=== PATIENT | female | born 1945 | race Caucasian/White ===

== ENCOUNTER 2022-10-26 11:49 | Outpatient (OUT) | payer MEDICARE, OTHER, SELFPAY ==
[2022-10-26 12:38] LABS: Basophils Percent Auto 0.7 % (0.2-2.0); Eosinophils Absolute Auto 0.1 10^3/uL (0.0-0.7); Eosinophils Percent Auto 1.1 % (0.9-7.0); Hematocrit 43.1 % (36.0-48.0); Hemoglobin 14.3 g/dL (12.0-16.0); Immature Granulocytes Abs Auto 0.03 10^3/uL (0.00-0.03); Immature Granulocytes Pct Auto 0.5 % (0.0-0.5); Lymphocytes Absolute Auto 1.5 10^3/uL (1.2-3.8); Mean Corpuscular HGB Conc 33.2 g/dL (29.9-35.2); Mean Corpuscular Volume 90.5 fL (81.0-99.0); Monocytes Absolute Auto 0.4 10^3/uL (0.3-0.8); Monocytes Percent Auto 6.9 % (1.7-12.0); Neutrophils Absolute Auto 4.1 10^3/uL (1.4-6.5); Neutrophils Percent Auto 66.8 % (43.0-75.0); Platelet Count 255 10^3/uL (150-450); Red Blood Count 4.76 10^6/uL (4.20-5.40); Red Cell Distribution Width 12.8 % (11.0-15.0); White Blood Count 6.1 10^3/uL (4.0-11.0)
[2022-10-26 13:18] LABS: Anion Gap 12.4; BUN Creatinine Ratio 18.6; Calcium 9.8 mg/dL (8.5-10.1); Carbon Dioxide 27.8 mmol/L (21.0-32.0); Chloride 103 mmol/L (98-107); Estimated GFR (African America >60 (>=60); Estimated GFR (Non-African Ame >60 (>=60); Glucose 99 mg/dL (74-106); Potassium 4.2 mmol/L (3.5-5.1); Sodium 139 mmol/L (136-145)
== END 2022-10-26 11:50 | disposition home or self-care (01) ==
LOC: LAB 11:59
PROVIDERS: PCP Family Medicine; Visit Provider Family Medicine
DX: K64.9 Unspecified hemorrhoids (principal)
CPT/HCPCS: 36415; 80048; 85025

== ENCOUNTER 2023-01-04 09:34 | Outpatient (OUT) | payer MEDICARE, OTHER, SELFPAY ==
--- NOTE | 2023-01-04 10:08 | XR_ITS ---
The [address] [address] Patient Name: YORDAN CHICAS MRN: [id number] date: 1945 Sex: F Assigned Patient Location: [facility] Current Patient Location: [facility] Accession/Order Number: [id number] Exam Date: 01/04/2023 09:55 Report Date: 01/04/2023 17:59 At the request of: YUNG EDWARD Procedure: XR hip LT 2V w/ pelvis Exam: Radiographs: XR hip LT 2V w/ pelvis Reason for exam: Left Hip Pain M25.552 Comparison: None XR/XR hip LT 2V w/ pelvis IMPRESSION: Mild degenerative changes of both hips. Lumbar spine degenerative changes. Atherosclerotic calcifications. Remainder of the left hip and pelvic radiographs is unremarkable. Electronically authenticated by: MELISSA HARRELL Date: 01/04/2023 17:59
--- NOTE | 2023-01-04 10:08 | XR_ITS ---
[address] [address] Patient Name: YORDAN CHICAS MRN: [id number] date: 1945 Sex: F Assigned Patient Location: [facility] Current Patient Location: [facility] Accession/Order Number: [id number] Exam Date: 01/04/2023 09:55 Report Date: 01/04/2023 14:35 At the request of: YUNG EDWARD Procedure: XR knee LT 3V EXAM: XR knee LT 3V HISTORY: Knee Pain M25.569 COMPARISON: None. TECHNIQUE: 3 views FINDINGS: No acute fracture or dislocation. Mild degenerative changes. Unremarkable soft tissues. XR/XR knee LT 3V IMPRESSION: Mild degenerative changes. Electronically authenticated by: BETH IQBAL Date: 01/04/2023 14:35
== END 2023-01-04 09:35 | disposition home or self-care (01) ==
LOC: RAD 09:36
PROVIDERS: PCP Family Medicine; Visit Provider Family Medicine
DX: M25.569 Pain in unspecified knee (principal); M25.552 Pain in left hip
CPT/HCPCS: 73502; 73562

== ENCOUNTER 2023-08-11 11:23 | Outpatient (OUT) | payer MEDICARE, OTHER, SELFPAY ==
--- OUTSIDE RECORDS SUMMARY | 2023-08-11 11:31 | XMS_ITS | CCD ---
Author Organization [facility] Care Team Providers Care Rubber Press Tender Name Role Phone Gladys Marroquin Unavailable Unavailable Jazz He Unavailable Unavaila ble Corry Martinez Unavailable Unavailable HOY, DR BARRAGAN Attending Unavailable HOY, DR BARRAGAN Consulting Unavailable HOY, DR BARRAGAN Admitting Unavailable HOY, DR BARRAGAN Attending Unavailable HOY, DR BARRAGAN Consulting Unavailable HOY, DR BARRAGAN Admitting Unavailable NILL, Wilberto Govea Attending Unavailable Yung Edward Referring Unavailable DUKE EDWARDLAS Primary Care Unavailable PEGGY FIELD Attending Unavaila ble Problems Problem Classification Problem Date Documented Da te Episodic/Chronic Chronic obstructive pulmonary disease and bronchiectasis (1 source) Chronic obstructive pulmonary disease, unspecified; Translations: [COPD UNSPECIFIED] Onset: 02-07-2022 Chronic Deficiency and other anemia (1 source) Anemia, unspecified; Translations: [ANEMIA UNSPECIFIED] Onset: 02-05-2022 Episodic Diabetes mellitus without complication (1 source) Other abnormal glucose; Translations: [OTHER ABNORMAL GLUCOSE] Onset: 02-05-2022 Episodic Disorders of lipid metabolism (2 sources) Pure hypercholesterolemi a, unspecified; Translations: [Hyperlipidemia, unspecified] Onset: 02-05-2022 Chronic Essential hypertension (5 sources) Essential (primary) hypertension; Translations: [ESSENTIAL PRIMARY HYPERTENSION] Onset: 02-01-2022 Chronic Hemorrhoids (2 sources) Unspecified hemorrhoids; Translations: [Unspecified hemorrhoids] Onset: 11-07-2022 Episodic Other lower respiratory disease (1 source) Dyspnea, unspecified; Translations: [DYSPNEA UNSPECIFIED] Onset: 02-07-2022 Episodic Other screening for suspected conditions (not mental disorders or infectious disease) (5 sources) Encounter for screening for malignant neoplasm of rectum; Translations: [ENC SCREEN MALIG NEOPLASM RECTUM] Onset: 02-03-2022 Episodic Results Test Name Value Interpretation Reference Range Facil ity Consultation Noteon 07-13-19 23 Consultation Note [id number] #1.00CD:127 Normal [facility] Physician Referralon 023 Physician Referral [id number] #1.00CD:127 Normal [facility] OCC BLD IMMUNO SCREENon OCCULT BLOOD Negative Normal NEGATIVE [facility] Comment on above: Performed By: #### O BSCRN #### [facility] [address] [place] [address] Dr. Niecy Acuña CBC AUTO DIFFon 02-01-2022 BASO # 0.0 103/ul Normal 0.0-0.1 [facility] Comment on above: Performed By: #### C BC #### [facility] [address] [place] [address] Dr. Niecy Acuña Basophils/100 WBC (Bld) 0.7 % Normal 0.2-2.0 [facility] Comment on above: Performed By: #### C BC #### [facility] [address] [place] [address] Dr. Niecy Acuña EO # 0.1 103/ul Normal 0.0-0.7 [facility] Comment on above: Performed By: #### C BC #### [facility] [address] [place] [address] Dr. Niecy Acuña Eosinophils/100 WBC (Bld) 1.5 % Normal 0.9-7.0 [facility] Comment on above: Performed By: #### C BC #### [facility] [address] [place] [address] Dr. Niecy Acuña Erythrocyte distribution width (RBC) [Ratio] 12.9 % Normal 11.0-15.0 [facility] Comment on above: Performed By: #### C BC #### [facility] [address] [place] [address] Dr. Niecy Acuña Hematocrit (Bld) [Volume fraction] 42.6 % Normal 36.0-48.0 [facility] Comment on above: Performed By: #### C BC #### [facility] [address] [place] [address] Dr. Niecy Acuña Hemoglobin (Bld) [Mass/Vol] 14.2 g/dL Normal 12.0-16.0 [facility] Comment on above: Performed By: #### C BC #### [facility] [address] [place] [address] Dr. Niecy Acuña IG # 0.03 10e3/ul Normal 0.00-0.03 [facility] Comment on above: Performed By: #### C BC #### [facility] [address] [place] [address] Dr. Niecy Acuña IG % 0.6 % Critically high 0.0-0.5 [facility] Comment on above: Performed By: #### C BC #### [facility] [address] [place] [address] Dr. Niecy Acuña LYMPH # 1.1 103/ul Critically low 1.2-3.8 [facility] Comment on above: Performed By: #### C BC #### [facility] [address] [place] [address] Dr. Niecy Acuña Lymphocytes/100 WBC (Bld) 20.1 % Critically low 20.5-60.0 [facility] Comment on above: Performed By: #### C BC #### [facility] [address] [place] [address] Dr. Niecy Acuña MANUAL DIFF REQ NO Normal [facility] Comment on above: Performed By: #### C BC #### [facility] [address] [place] [address] Dr. Niecy Acuña MCH (RBC) [Entitic mass] 29.6 pg Normal 26.7-34.0 [facility] Comment on above: Performed By: #### C BC #### [facility] [address] [place] [address] Dr. Niecy Acuña MCHC (RBC) [Mass/Vol] 33.3 g/dL Normal 29.9-35.2 [facility] Comment on above: Performed By: #### C BC #### [facility] [address] [id number] Niecy Acuña MCV (RBC) [Entitic vol] 88.8 fL Normal 81.0-99.0 [facility] Comment on above: Performed By: #### C BC #### [facility] [address] [address] [address] Niecy Acuña MONO # 0.3 103/ul Normal 0.3-0.8 [facility] Comment on above: Performed By: #### C BC #### [facility] [address] [place] [address] Dr. Niecy Acuña Monocytes/100 WBC (Bld) 6.1 % Normal 1.7-12.0 [facility] Comment on above: Performed By: #### C BC #### [facility] [address] [place] [address] Dr. Niecy Acuña NEUT # 3.9 103/ul Normal 1.4-6.5 [facility] Comment on above: Performed By: #### C BC #### [facility] [address] [place] [address] Dr. Niecy Acuña Neutrophils/100 WBC (Bld) 71.0 % Normal 43.0-75.0 [facility] Comment on above: Performed By: #### C BC #### [facility] [address] [place] [address] Dr. Niecy Acuña Platelet mean volume (Bld) [Entitic vol] 8.9 fL Critically low 9.5-13.5 [facility] Comment on above: Performed By: #### C BC #### [facility] [address] [place] [address] Dr. Niecy Acuña PLT 249 103/ul Normal 150-450 [facility] Comment on above: Performed By: #### C BC #### [facility] [address] [place] [address] Dr. Niecy Acuña RBC 4.80 106/ul Normal 4.20-5.40 [facility] Comment on above: Performed By: #### C BC #### [facility] [address] [place], [place] [id number] Dr. Niecy Acuña WBC 5.4 103/ul Normal 4.0-11.0 [facility] Comment on above: Performed By: #### C BC #### [facility] [address] [place] [address] Dr. Niecy Acuña FREE THYROXINE INDEX T7on FTI 3.35 Normal 1.30-4.50 [facility] Comment on above: Performed By: #### L IPID, T7, TSH, CMP #### [facility] [address] [place] [address] Dr. Niecy Acuña T3U 31.0 % Normal 30.0-39.0 [facility] Comment on above: Performed By: #### L IPID, T7, TSH, CMP #### [facility] [address] [place] [address] Dr. Niecy Acuña T4 [Mass/Vol] 10.80 ug/dL Normal 4.80-13.90 [facility] Comment on above: Performed By: #### L IPID, T7, TSH, CMP #### [facility] [address] [place] [address] Dr. Niecy Acuña GLYCOHEMOGLOBIN A1Con 2021 ADA RECOMMENDATION SEE BELOW Normal [facility] Comment on above: Result Comment: ADA RECOMMENDED LIMIT 4.0 - 6.0 ADA THERAPEUTIC TARGET < 7.0 ACTION SUGGESTED > 7.0 Performed By: #### A 1C #### [facility] [address] [place] [address] Dr. Niecy Acuña Glucose [Mass/Vol] 111 mg/dL Normal [facility] Comment on above: Performed By: #### A 1C #### [facility] [address] [place] [address] Dr. Niecy Acuña HbA1c (Bld) [Mass fraction] 5.5 % Normal 4.5-6.2 [facility] Comment on above: Performed By: #### A 1C #### [facility] [address] [place] [address] Dr. Niecy Acuña IRONon 02-01-2022 Iron [Mass/Vol] 76.0 ug/dL Normal 50.0-170.0 [facility] Comment on above: Performed By: #### I ESTELITA #### [facility] [address] [address] [address] Niecy Acuña LIPID PROFILEon 02-01-2022 CHOL-HDL RATIO NORM SEE BELOW Normal [facility] Comment on above: Result Comment: 3.3 - 4.4 LOW RISK 4.4 - 7.1 AVERAGE RISK 7.1 - 11.0 MODERATE RISK >11.0 HIGH RISK Performed By: #### L IPID, T7, TSH, CMP #### [facility] [address] [address] [address] Niecy Acuña Cholesterol [Mass/Vol] 206 mg/dL Critically high <=200 [facility] Comment on above: Performed By: #### L IPID, T7, TSH, CMP #### [facility] [address] [place] [address] Dr. Niecy Acuña Cholesterol in HDL [Mass/Vol] 63 mg/dL Critically high 40-60 [facility] Comment on above: Performed By: #### L IPID, T7, TSH, CMP #### [facility] [address] [address] [address] Niecy Acuña Cholesterol in LDL [Mass/Vol] 97.4 mg/dL Normal [facility] Comment on above: Performed By: #### L IPID, T7, TSH, CMP #### [facility] [address] [address] [address] Niecy Acuña Cholesterol.total/Cho lesterol in HDL [Mass ratio] 3.3 {ratio} Normal [facility] Comment on above: Performed By: #### L IPID, T7, TSH, CMP #### [facility] [address] [address] [address] Niecy Acuña HDL NORMAL > or = 60 mg/dl - LOW CARDIOVASCULAR RISK <40 mg/dl - HIGH CARDIOVASCULAR RISK Normal [facility] Comment on above: Performed By: #### L IPID, T7, TSH, CMP #### [facility] [address] [place] [address] Dr. Niecy Acuña LDL CALC NORMAL SEE BELOW Normal [facility] Comment on above: Result Comment: <100 mg/dl OPTIMAL 100 - 129 mg/dl NEAR OR ABOVE OPTIMAL 130 - 159 mg/dl BORDERLINE HIGH 160 - 189 mg/dl HIGH >190 mg/dl VERY HIGH Performed By: #### L IPID, T7, TSH, CMP #### [facility] [address] [address] [address] Niecy Acuña Triglyceride [Mass/Vol] 228 mg/dL Critically high <=150 [facility] Comment on above: Performed By: #### L IPID, T7, TSH, CMP #### [facility] [address] [address] [address] Niecy Acuña VLDL CALC 45.6 mg/dL Normal [facility] Comment on above: Performed By: #### L IPID, T7, TSH, CMP #### [facility] [address] [place] [address] Dr. Niecy Acuña PROF 14(COMP METB)on 022 Albumin [Mass/Vol] 3.8 g/dL Normal 3.4-5.0 [facility] Comment on above: Performed By: #### L IPID, T7, TSH, CMP #### [facility] [address] [place] [address] Dr. Niecy Acuña Albumin/Globulin [Mass ratio] 1.0 {ratio} Normal [facility] Comment on above: Performed By: #### L IPID, T7, TSH, CMP #### [facility] [address] [address] [address] Niecy Acuña ALP [Catalytic activity/Vol] 87 U/L Normal 46-116 [facility] Comment on above: Performed By: #### L IPID, T7, TSH, CMP #### [facility] [address] [address] [address] Niecy Acuña ALT [Catalytic activity/Vol] 26 U/L Normal 14-59 [facility] Comment on above: Performed By: #### L IPID, T7, TSH, CMP #### [facility] [address] [place] [address] Dr. Niecy Acuña Anion gap [Moles/Vol] 8.8 mmol/L Normal [facility] Comment on above: Performed By: #### L IPID, T7, TSH, CMP #### [facility] [address] [address] [address] Niecy Acuña AST [Catalytic activity/Vol] 20 U/L Normal 15-37 [facility] Comment on above: Performed By: #### L IPID, T7, TSH, CMP #### [facility] [address] [address] [address] Niecy Acuña Bilirubin [Mass/Vol] 0.9 mg/dL Normal 0.2-1.0 [facility] Comment on above: Performed By: #### L IPID, T7, TSH, CMP #### [facility] [address] [place] [address] Dr. Niecy Acuña Calcium [Mass/Vol] 9.3 mg/dL Normal 8.5-10.1 [facility] Comment on above: Performed By: #### L IPID, T7, TSH, CMP #### [facility] [address] [place] [address] Dr. Niecy Acuña Chloride [Moles/Vol] 104 mmol/L Normal 98-107 [facility] Comment on above: Performed By: #### L IPID, T7, TSH, CMP #### [facility] [address] [place] [address] Dr. Niecy Acuña CO2 [Moles/Vol] 29.3 mmol/L Normal 21.0-32.0 [facility] Comment on above: Performed By: #### L IPID, T7, TSH, CMP #### [facility] [address] [place] [address] Dr. Niecy Acuña Creatinine [Mass/Vol] 0.91 mg/dL Normal 0.55-1.02 [facility] Comment on above: Performed By: #### L IPID, T7, TSH, CMP #### [facility] [address] [place] [address] Dr. Niecy Acuña EGFR-AF NAURUAN >60 Normal >=60 [facility] Comment on above: Performed By: #### L IPID, T7, TSH, CMP #### [facility] [address] [place] [address] Dr. Niecy Acuña EGFR-NON AF NAURUAN =60 Normal >=60 [facility] Comment on above: Performed By: #### L IPID, T7, TSH, CMP #### [facility] [address] [place] [address] Dr. Niecy Acuña Globulin (S) [Mass/Vol] 3.9 g/dL Normal [facility] Comment on above: Performed By: #### L IPID, T7, TSH, CMP #### [facility] [address] [place] [address] Dr. Niecy Acuña Glucose [Mass/Vol] 99 mg/dL Normal 74-106 [facility] Comment on above: Performed By: #### L IPID, T7, TSH, CMP #### [facility] [address] [place] [address] Dr. Niecy Acuña Potassium [Moles/Vol] 4.1 mmol/L Normal 3.5-5.1 [facility] Comment on above: Performed By: #### L IPID, T7, TSH, CMP #### [facility] [address] [place] [address] Dr. Niecy Acuña Protein [Mass/Vol] 7.7 g/dL Normal 6.4-8.2 [facility] Comment on above: Performed By: #### L IPID, T7, TSH, CMP #### [facility] [address] [place] [address] Dr. Niecy Acuña Sodium [Moles/Vol] 138 mmol/L Normal 136-145 [facility] Comment on above: Performed By: #### L IPID, T7, TSH, CMP #### [facility] [address] [place] [address] Dr. Niecy Acuña Urea nitrogen [Mass/Vol] 16.0 mg/dL Normal 7.0-18.0 [facility] Comment on above: Performed By: #### L IPID, T7, TSH, CMP #### [facility] [address] [place] [address] Dr. Niecy Acuña Urea nitrogen/Creatinine [Mass ratio] 17.6 mg/mg Normal [facility] Comment on above: Performed By: #### L IPID, T7, TSH, CMP #### [facility] [address] [place], [place] [address] Dr. Niecy Acuña TSHon 02-01-2022 TSH 2.359 uIU/mL Normal 0.358-3.740 [facility] Comment on above: Performed By: #### L IPID, T7, TSH, CMP #### [facility] [address] [place], [place] [address] Dr. Niecy Acuña Encounters Encounter Date Encounter Type Care Provider Facility Start: 11-07-2022 End: 11-07-2022 ambulatory YUNG EDWARD [facility] Start: 07-11-2022 ambulatory Wilberto LOPES Facility :[facility] Start: 02-03-2022 End: 02-03-[address] YUNG EDWARD Facility: Start: 02-01-2022 End: 02-02-[address] YUNG EDWARD Facility:[facility] Start: 12-27-2017 Patient encounter procedure Gladys Marroquin Facility:[id number] Payers Date Payer Category Payer Medicare [id number] 1958 Medicare [id number] 1958 Unknown [id number] 1945 Unknown [id number] . [id number] 1945 Unknown [id number] .16.84 [id number] 1945 Unknown [id number] .16.84 [id number] 1945 Unknown [id number] 2.16.8 [id number] 1945 Unknown [id number] .16. [id number] Unknown [id number] Summary Purpose Family History No Family History Records FoundNo Family History Records FoundNo Family History Records FoundNo Family History Records Found Advance Directives No Advanced Directives Records FoundNo Advanced Directives Records FoundNo Advanced Directives Records FoundNo Advanced Directives Records Found Additional Source Comments INFORMATION SOURCE (unrecogn ized section and content) DATE CREATED AUTHOR 02/06/2018 [facility] DATE CREATED AUTHOR AUTHOR'S ORGANIZ ATION 02/08/2022 [facility] DATE CREATED AUTHOR AUTHOR'S ORGANIZ ATION 07/13/2022 Jorge Luis Zurita [facility] DATE CREATED AUTHOR AUTHOR'S ORGANIZ ATION 12/21/2022 [facility] FOR RECORDS PERTAINING TO PATIENTS WHO ARE OR HAVE BEEN ENROLLED IN A CHEMICAL DEPENDENCY/SUBSTANCEABUSE PROGRAM, SOME INFORMATION MAY BE OMITTED. This clinical summary was aggregated from multiple sources. Caution should be exercised in using it in the provision of clinical care. This summary normalizes information from multiple sources, and as a consequence, information in this document may materially change the coding, format and clinical context of patient data. In addition, data may be omitted in some cases. CLINICAL DECISIONS SHOULD BE BASED ON THE PRIMARY CLINICAL RECORDS. [facility] [employer] [facility]. provides no warranty or guarantee of the accuracy or completeness of information in this document.
[2023-08-11 12:29] LABS: Basophils Percent Auto 0.6 % (0.2-2.0); Eosinophils Absolute Auto 0.1 10^3/uL (0.0-0.7); Eosinophils Percent Auto 1.8 % (0.9-7.0); Hemoglobin 13.6 g/dL (12.0-16.0); Immature Granulocytes Abs Auto 0.02 10^3/uL (0.00-0.03); Immature Granulocytes Pct Auto 0.4 % (0.0-0.5); Lymphocytes Absolute Auto 1.3 10^3/uL (1.2-3.8); Lymphocytes Percent Auto 24.4 % (20.5-60.0); Mean Corpuscular HGB Conc 33.2 g/dL (29.9-35.2); Mean Corpuscular Hemoglobin 29.6 pg (26.7-34.0); Mean Corpuscular Volume 89.3 fL (81.0-99.0); Mean Platelet Volume 9.4 fL (9.5-13.5); Monocytes Absolute Auto 0.3 10^3/uL (0.3-0.8); Monocytes Percent Auto 6.1 % (1.7-12.0); Neutrophils Absolute Auto 3.4 10^3/uL (1.4-6.5); Neutrophils Percent Auto 66.7 % (43.0-75.0); Platelet Count 265 10^3/uL (150-450); Red Blood Count 4.59 10^6/uL (4.20-5.40); Red Cell Distribution Width 13.1 % (11.0-15.0); White Blood Count 5.1 10^3/uL (4.0-11.0)
[2023-08-11 12:38] LABS: Estimated Average Glucose 114 mg/dL; Glycohemoglobin A1C 5.6 % (4.5-6.2)
[2023-08-11 12:59] LABS: Bilirubin Urine NEGATIVE (NEGATIVE); Blood Urine NEGATIVE (NEGATIVE); Clarity Urine CLEAR (CLEAR); Color Urine YELLOW (YELLOW); Glucose Urine UA NEGATIVE (NEGATIVE); Ketones Urine NEGATIVE (NEGATIVE); Leukocyte Esterase Urine NEGATIVE (NEGATIVE); Nitrite Urine NEGATIVE (NEGATIVE); Protein Urine NEGATIVE (NEG/TRACE); Specific Gravity Urine >=1.030 (1.005-1.025); Urobilinogen Urine 0.2 EU/dL (0.2-1.0); pH Urine 5.5 (5.0-9.0)
[2023-08-11 13:14] LABS: Bacteria Urine NONE SEEN #/HPF (NONE SEEN); Mucus Urine MODERATE (NONE SEEN); RBC Urine NONE SEEN #/HPF (0-2); Squamous Epithelial Cell Urine FEW #/LPF (NONE/RARE); WBC Urine NONE SEEN #/HPF (NONE SEEN)
[2023-08-11 13:15] LABS: Urine Culture Indicated ALREADY ORDERED
[2023-08-11 13:46] LABS: Alanine Aminotransferase 20 U/L (14-59); Albumin Globulin Ratio 0.9; Albumin Level 3.7 g/dL (3.4-5.0); Alkaline Phosphatase 91 U/L (46-116); Anion Gap 10.2; Aspartate Amino Transferase 20 U/L (15-37); BUN Creatinine Ratio 20.7; Bilirubin Total 0.8 mg/dL (0.2-1.0); Calcium 9.4 mg/dL (8.5-10.1); Carbon Dioxide 28.9 mmol/L (21.0-32.0); Chloride 105 mmol/L (98-107); Cholesterol 203 mg/dL (<=200); Estimated GFR (African America >60 (>=60); Estimated GFR (Non-African Ame >60 (>=60); Free T3 2.85 pg/mL (2.18-3.98); Globulin 4.1 g/dL; Glucose 92 mg/dL (74-106); HDL Cholesterol 67 mg/dL (40-60); Potassium 4.1 mmol/L (3.5-5.1); Sodium 140 mmol/L (136-145); Thyroid Stimulating Hormone 1.795 uIU/mL (0.358-3.740); Total Protein 7.8 g/dL (6.4-8.2); Triglycerides 135 mg/dL (<=150)
== END 2023-08-11 11:24 | disposition home or self-care (01) ==
LOC: LAB 11:26
PROVIDERS: PCP Family Medicine; Visit Provider Family Medicine
DX: L65.9 Nonscarring hair loss, unspecified (principal); E78.5 Hyperlipidemia, unspecified; R73.09 Other abnormal glucose; D64.9 Anemia, unspecified; E55.9 Vitamin D deficiency, unspecified; R82.90 Unspecified abnormal findings in urine
CPT/HCPCS: 36415; 80053; 80061; 81001; 82306; 82607; 82746; 83036; 83540; 84436; 84443; 84481; 85025; 87086

== ENCOUNTER 2024-12-31 10:52 | Outpatient (OUT) | payer MEDICARE, OTHER, SELFPAY ==
--- OUTSIDE RECORDS SUMMARY | 2024-12-31 11:07 | XMS_ITS | Clinical Summary ---
Author Organization [facility] Address [address] [place] [address] Phone Care Team Providers Care Patent Leather Sorter Name Role Phone Corry Martinez MD Primary Care Provider [phone] Social History Tobacco UseTypesPacks/DayYears UsedDateSmoking Tobacco: Never Assessed CommentsUnknownSex and Gender InformationValueDate RecordedSex Assigned at Not on fileLegal KjzOgkjkg97/25/2022 3:40 PM ESTGender IdentityNot on fileSexual OrientationNot on file Plan of Treatment Not on file Care Teams Team MemberRelationshipSpecialtyStart DateEnd Date Corry Martinez MD [address] [place] [phone] PCP - Zzabtcl49/31/18
--- OUTSIDE RECORDS SUMMARY | 2024-12-31 11:07 | XMS_ITS | Clinical Summary ---
Author Organization [facility] Address [address] [place] [address] Care Team Providers Care Retail Service Specialist Name Role Phone Bakari Lucas MD Primary Care Provider [phone] Allergies No known active allergies Medications MedicationSigDispense QuantityRefillsLast FilledStart DateEnd DateStatus atorvastatin (LIPITOR) 10 MG tablet 07/19/2022ctive Trelegy Ellipta 100-62.5-25 mcg DsDv 07/05/2022ctive losartan (COZAAR) 50 MG tablet 06/16/2022ctive loperamide HCl (ANTI-DIARRHEA ORAL) Take by mouth .Active Active Problems ProblemNoted DateDiagnosed SzziGahuhlkhado05/01/2023Rectal touehzjp28/01/2023 History of anal smjpkt3607/28/2022 Family History Medical HistoryRelationCommentsColon cancerFatherRelationStatusCommentsFather Social History Tobacco UseTypesPacks/DayYears UsedDateSmoking Tobacco: FormerCigarettesQuit: 1982Smokeless Tobacco: Never Tobacco Cessation:Counseling Given: Not Answered Alcohol UseStandard Drinks/WeekCommentsYes0 (1 standard drink = 0.6 oz pure alcohol)CommentsUnknownSex and Gender InformationValueDate RecordedSex Assigned at BirthNot on fileLegal CkjBpwlzk33/15/2014 5:02 PM ESTGender Identity Not on fileSexual OrientationNot on file Last Filed Vital Signs Vital SignReadingTime TakenCommentsBlood Pressure--Pulse--Temperature-- Respiratory Rate--Oxygen Saturation--Inhaled Oxygen Concentration--Ynabdn28 kg (183 lb)09/27/2022 11:31 AM DLGOnaugp474.6 cm (5' 4 )09/27/2022 11:31 AM EDTBody Mass Index31.4108 11:31 AM EDT Plan of Treatment Health MaintenanceDue DateLast DoneCommentsDexa Scan1946Medicare Wellness Visit1949Depression Screening/Follow-Up (PHQ-2/9)1958Hepatitis C Gllfeodkp07/19/1965Tetanus/Diphtheria/Pertussis (1 - Tdap)1965Mammogram 1986Zoster Vaccines (1 of 2)1996Falls Risk Ppeizggtre19/19/2012RSV Vaccines (1 - 1-dose 75+ series)2COVID-19 Vaccine ( season) , 06/01/2021, 01/07/2021, Additional history existsInfluenza Vaccine (#1)5103/08/2014Pneumococcal Vaccine: 50+ YearsCompleted 04/17/2018, 01/06/2015HIB VaccinesAged OutNo longer eligible based on patient's age to complete this topicHPV VaccinesAged OutNo longer eligible based on patient's age to complete this topicHepatitis A VaccinesAged OutNo longer eligible based on patient's age to complete this topicHepatitis B VaccinesAged OutNo longer eligible based on patient's age to complete this topicIPV Vaccines Aged OutNo longer eligible based on patient's age to complete this topic Meningococcal ACWY VaccineAged OutNo longer eligible based on patient's age to complete this topicMeningococcal B VaccineAged OutNo longer eligible based on patient's age to complete this topicRotavirus VaccinesAged OutNo longer eligible based on patient's age to complete this topic Insurance * Guarantor: Sparkle Rosado TypeRelation to PatientDate of BirthPhone Billing AddressPersonal/QozqnvFoef60/19/1946 [id number] (Home) [address] [place] [id number] Care Teams Team MemberRelationshipSpecialtyStart Date Bakari Lucas MD [address] [facility] [address] [id number] PCP - GeneralFamily Medicine07/28/22
--- OUTSIDE RECORDS SUMMARY | 2024-12-31 11:07 | XMS_ITS | Clinical Summary ---
Author Organization [facility] Address [address] [place] [address] Care Team Providers Care Roughener Name Role Phone Unavailable Primary Care Provider Unavailabl e Social History Tobacco UseTypesPacks/DayYears UsedDateSmoking Tobacco: Never Assessed CommentsUnknownSex and Gender InformationValueDate RecordedSex Assigned at Not on fileLegal WpbNykdno47/15/2023 6:47 PM EDTGender IdentityNot on fileSexual OrientationNot on file Last Filed Vital Signs Vital SignReadingTime TakenCommentsBlood Mfyirrmf381/7808 12:00 PM EDT Pulse--Temperature--Respiratory Rate--Oxygen Saturation--Inhaled Oxygen Concentration--Mgjqea66.6 kg (160 lb)04/08/2020 12:00 PM ADTKfnyva697.8 cm (5' 4.5 )04/08/2020 12:00 PM ESTBody Mass Index27.04004/08/2020 12:00 PM EST Plan of Treatment Not on file Insurance * Guarantor: Sparkle Rosado TypeRelation to PatientDate of BirthPhone Billing AddressPersonal/TvqnffVeah29/19/1946 [facility] [address] [address]
--- OUTSIDE RECORDS SUMMARY | 2024-12-31 11:14 | XMS_ITS | CCD ---
Author Organization [facility] Care Team Providers Care Cork Insulator Helper Name Role Phone Gladys Marroquin Unavailable Unavailable Jazz He Unavailable Unavaila ble Juan, Corry Brown Unavailable Unavailable HOY, DR BARRAGAN Attending Unavailable HOY, DR BARRAGAN Consulting Unavailable HOY, DR BARRGAAN Admitting Unavailable HOY, DR BARRAGAN Attending Unavailable HOY, DR BARRAGAN Consulting Unavailable HOY, DR BARRAGAN Admitting Unavailable NILL, Wilberto Govea Attending Unavailable Duke Lucaslas Referring Unavailable DUKE LUCASLAS Primary Care Unavailable PEGGY FIELD Attending Unavaila ble Problems Problem ClassificationProblemDateDocumented DateEpisodic/ChronicChronic obstructive pulmonary disease and bronchiectasis (1 source)Chronic obstructive pulmonary disease, unspecified; Translations: [COPD UNSPECIFIED]Onset: 46-19-8875WizhjncWgdsrwvmbt and other anemia (1 source)Anemia, unspecified; Translations: [ANEMIA UNSPECIFIED]Onset: 85-64-3477VopynwrhJcqhvsdw mellitus without complication (1 source)Other abnormal glucose; Translations: [OTHER ABNORMAL GLUCOSE]Onset: 65-17-2184UzjtlhtnRoaqxhkfv of lipid metabolism (2 sources)Pure hypercholesterolemia, unspecified; Translations: [Hyperlipidemia, unspecified]Onset: 23-38-6667BuhgrkqAoseuoiuq hypertension (5 sources)Essential (primary) hypertension; Translations: [ESSENTIAL PRIMARY HYPERTENSION]Onset: 50-44-9159BisldrdRiqkjzpkjdj (2 sources)Unspecified hemorrhoids; Translations: [Unspecified hemorrhoids] Onset: 95-41-4930FlwgckwwHustz lower respiratory disease (1 source)Dyspnea, unspecified; Translations: [DYSPNEA UNSPECIFIED]Onset: 14-77-3127OzsfdqbqAylnm screening for suspected conditions (not mental disorders or infectious disease) (5 sources)Encounter for screening for malignant neoplasm of rectum; Translations: [ENC SCREEN MALIG NEOPLASM RECTUM]Onset: 68-13-5451Rphmfzoc Results Test NameValueInterpretationReference RangeFacilityConsultation Noteon 76-49-4857Avgovipvxbbx [id number]#1.00CD:127 [facility] HospitalPhysician Referralon 06-40-7532Ctuymxjzi [id number]#1.00CD:127NormalBucyrus Community HospitalOCC BLD IMMUNO SCREENon 00-96-9610BXQVFW BLOODNegativeNormal NEGATIVEThe [facility] HospitalComment on above:Performed By: #### OBSCRN #### [facility] [address] [place] [address] Dr. Niecy AliceaC AUTO DIFFon 19-84-1179TGUX #0.0 103/ulNormal0.0-0.1The [facility] HospitalComment on above:Performed By: #### CBC #### [facility] [address] [place] [address] Dr. Niecy Omalleysophils/100 WBC (Bld)0.7 %Normal0.2-2.0[facility] Comment on above:Performed By: #### CBC #### [facility] [address] [place] [address] Dr. Niecy Del Angel #0.1 103/ulNormal0.0-0.7The [facility] HospitalComment on above: Performed By: #### CBC #### [facility] [address] [place] [address] Dr. Niecy Willoughbyosinophils/100 WBC (Bld)1.5 %Normal0.9-7.0The [facility] Comment on above:Performed By: #### CBC #### [facility] [address] [place] [address] Dr. Niecy Willoughbyrythrocyte distribution width (RBC) [Ratio]12.9 %Odvjwd42.0-15.0 The [facility] HospitalComment on above:Performed By: #### CBC #### [facility] [address] [address] [address] Niecy AcuñaHematocrit (Bld) [Volume fraction]42.6 %Qqnbxx77.0-48.0The [facility] HospitalComment on above:Performed By: #### CBC #### [facility] [address] [place] [address] Dr. Niecy AcuñaHemoglobin (Bld) [Mass/Vol]14.2 g/aFCebhel42.0-16.0The [facility] HospitalComment on above:Performed By: #### CBC #### [facility] [address] [place] [address] Dr. Niecy Franco #0.03 10e3/ulNormal0.00-0.03The [facility] HospitalComment on above:Performed By: #### CBC #### [facility] [address] [place] [address] Dr. Niecy Franco %0.6 %Critically high0.0-0.5The [facility] HospitalComment on above:Performed By: #### CBC #### [facility] [address] [address] [address] Niecy De Oliveira #1.1 103/ulCritically low1.2-3.8The [facility] Comment on above:Performed By: #### CBC #### [facility] [address] [place] [address] Dr. Niecy Nathmphocytes/100 WBC (Bld)20.1 %Critically low20.5-60.0The [facility] HospitalComment on above:Performed By: #### CBC #### [facility] [address] [place] [address] Dr. Niecy AcuñaMANUAL DIFF REQNONormalThe [facility] HospitalComment on above: Performed By: #### CBC #### [facility] [address] [place] [address] Dr. Niecy Davis (RBC) [Entitic mass]29.6 juQzbtkd38.7-34.0The [facility] HospitalComment on above:Performed By: #### CBC #### [facility] [address] [address] [address] Niecy BoschHC (RBC) [Mass/Vol]33.3 g/qPAageev54.9-35.2The [facility] HospitalComment on above:Performed By: #### CBC #### [facility] [address] [place] [address] Dr. Niecy BoschV (RBC) [Entitic vol]88.8 jZRmafih66.0-99.0The [facility] HospitalComment on above:Performed By: #### CBC #### [facility] [address] [place] [address] Dr. Niecy Vargas #0.3 103/ulNormal0.3-0.8The [facility] HospitalComment on above:Performed By: #### CBC #### [facility] [address] [place] [address] Dr. Niecy Sarkarocytes/100 WBC (Bld)6.1 %Normal1.7-12.0The [facility] Comment on above:Performed By: #### CBC #### [facility] [address] [place] [address] Dr. Niecy iSerra #3.9 103/ulNormal1.4-6.5The [facility] HospitalComment on above:Performed By: #### CBC #### [facility] [address] [place] [address] Dr. Niecy Jonesutrophils/100 WBC (Bld)71.0 %Sorupo42.0-75.0The [facility] HospitalComment on above:Performed By: #### CBC #### [facility] [address] [place] [address] Dr. Niecy Antoinelet mean volume (Bld) [Entitic vol]8.9 fLCritically low 9.5-13.5The [facility] HospitalComment on above:Performed By: #### CBC #### [facility] [address] [place] [address] Dr. Niecy AcuñaPLT249 103/kcNpgete337-736Gxa W[facility]-Rittman Hospitalment on above: Performed By: #### CBC #### [facility] [address] [place] [address] Dr. Niecy AcuñaRBC4.80 106/ulNormal4.20-5.40The [facility] HospitalComsouthwest regional rehabilitation center on above:Performed By: #### CBC #### [facility] [address] [place] [address] Dr. Niecy AcuñaWBC5.4 103/ulNormal4.0-11.0The [facility] HospitalComment on above: Performed By: #### CBC #### [facility] [address] [place] [address] Dr. Niecy AcuñaFRNICHOLE THYROXINE INDEX T7on 54-02-1101RII8.92Ifkzht1.30-4.50The [facility] on above:Performed By: #### LIPID, T7, TSH, CMP #### [facility] [address] [place] [address] Dr. Niecy AcuñaT3U31.0 %Pdoegw41.0-39.0The [facility] HospitalComsouthwest regional rehabilitation center on above: Performed By: #### LIPID, T7, TSH, CMP #### [facility] [address] [place] [address] Dr. Niecy AcuñaT4 [Mass/Vol]10.80 ug/dLNormal4.80-13.90[facility] Comment on above:Performed By: #### LIPID, T7, TSH, CMP #### [facility] [address] [place] [address] Dr. Niecy AcuñaGLYCOHEMOGLOBIN A1Con 82-97-1719JUR RECOMMENDATIONSEE BELOWNormal The [facility] HospitalComsouthwest regional rehabilitation center on above:Result Comment: ADA RECOMMENDED LIMIT 4.0 - 6.0 ADA THERAPEUTIC TARGET < 7.0 ACTION SUGGESTED > 7.0Performed By: #### A1C #### [facility] [address] [place] [address] Dr. Niecy AcuñaGlucose [Mass/Vol]111 mg/dLNormalThe [facility] HospitalComsouthwest regional rehabilitation center on above:Performed By: #### A1C #### [facility] [address] [address] [address] Niecy AcuñaHbA1c (Bld) [Mass fraction]5.5 %Normal4.5-6.2The [facility] on above:Performed By: #### A1C #### [facility] [address] [address] [address] Niecy Iglesias 31-12-1725Vczo [Mass/Vol]76.0 ug/rIIkqovr38.0-170.0The [facility] on above:Performed By: #### IRON #### [facility] [address] [place] [address] Dr. Niecy Gaffney PROFILEon 51-30-7884WRON-HDL RATIO NORMSEE [facility] HospitalComsouth[facility] on above:Result Comment: 3.3 - 4.4 LOW RISK 4.4 - 7.1 AVERAGE RISK 7.1 - 11.0 MODERATE RISK >11.0 HIGH RISKPerformed By: #### LIPID, T7, TSH, CMP #### [facility] [address] [place] [address] Dr. Niecy Larkinesterol [Mass/Vol]206 mg/dLCritically high<=200The [facility] on above:Performed By: #### LIPID, T7, TSH, CMP #### [facility] [address] [place] [address] Dr. Niecy AcuñaCholesterol in HDL [Mass/Vol]63 mg/dLCritically gwua41-73Uvi [facility] on above:Performed By: #### LIPID, T7, TSH, CMP #### [facility] [address] [place] [address] Dr. Niecy Larkinesterol in LDL [Mass/Vol]97.4 mg/dLUniversity Hospitals Portage Medical Center on above:Performed By: #### LIPID, T7, TSH, CMP #### [facility] [address] [place] [address] Dr. Niecy Larkinestervaishali.total/Cholesterol in HDL [Mass ratio]3.3 {ratio} NormalThe Cait HospitalComment on above:Performed By: #### LIPID, T7, TSH, CMP #### [facility] [address] [address] [address] Niecy Merrill NORMAL> or = 60 mg/dl - LOW CARDIOVASCULAR RISK <40 mg/dl - HIGH CARDIOVASCULAR RISKUniversity Hospitals Portage Medical Center on above:Performed By: #### LIPID, T7, TSH, CMP #### [facility] [address] [place] [address] Dr. Niecy AcuñaLDL CALC NORMALSEE BELOWOhio State Harding HospitalComment on above:Result Comment: <100 mg/dl OPTIMAL 100 - 129 mg/dl NEAR OR ABOVE OPTIMAL 130 - 159 mg/dl BORDERLINE HIGH 160 - 189 mg/dl HIGH >190 mg/dl VERY HIGH Performed By: #### LIPID, T7, TSH, CMP #### [facility] [address] [place] [address] Dr. Niecy AcuñaTriglyceride [Mass/Vol]228 mg/dLCritically high<=150The [facility] on above:Performed By: #### LIPID, T7, TSH, CMP #### [facility] [address] [place] [address] Dr. Niecy AmayaLDL CALC45.6 mg/dLNoCleveland Clinic South Pointe HospitalComsouthwest regional rehabilitation center on above: Performed By: #### LIPID, T7, TSH, CMP #### [facility] [address] [place] [address] Dr. Niecy AcuñaPROF 14(COMP METB)on 51-78-0315Ixhkfet [Mass/Vol]3.8 g/dLNormal 3.4-5.0The [facility] on above:Performed By: #### LIPID, T7, TSH, CMP #### [facility] [address] [place] [address] Dr. Niecy AcuñaAlbumin/Globulin [Mass ratio]1.0 {ratio}NormalThe [facility] on above:Performed By: #### LIPID, T7, TSH, CMP #### [facility] [address] [place] [address] Dr. Yilan ChangALP [Catalytic activity/Vol]87 U/WFhbibk53-884Eku [facility] HospitalComment on above:Performed By: #### LIPID, T7, TSH, CMP #### [facility] [address] [place] [address] Dr. Niecy GuerreroT [Catalytic activity/Vol]26 U/VFtqdea80-11Hra [facility] HospitalComment on above:Performed By: #### LIPID, T7, TSH, CMP #### [facility] [address] [place] [address] Dr. Niecy Grant gap [Moles/Vol]8.8 mmol/LNormalThe [facility] HospitalComment on above:Performed By: #### LIPID, T7, TSH, CMP #### [facility] [address] [place] [address] Dr. Niecy AcuñaAST [Catalytic activity/Vol]20 U/XGjcnwr70-64Uvv [facility] HospitalComment on above:Performed By: #### LIPID, T7, TSH, CMP #### [facility] [address] [place] [address] Dr. Niecy AcuñaBilirubin [Mass/Vol]0.9 mg/dLNormal0.2-1.0The [facility] Comment on above:Performed By: #### LIPID, T7, TSH, CMP #### [facility] [address] [place] [address] Dr. Niecy AcuñaCalcium [Mass/Vol]9.3 mg/dLNormal8.5-10.1[facility] Comment on above:Performed By: #### LIPID, T7, TSH, CMP #### [facility] [address] [place] [address] Dr. Niecy AcuñaChloride [Moles/Vol]104 mmol/RPxppzw42-319Tpq [facility] Comment on above:Performed By: #### LIPID, T7, TSH, CMP #### [facility] [address] [place] [address] Dr. Niecy AcuñaCO2 [Moles/Vol]29.3 mmol/HSbkknr82.0-32.0The [facility] Comment on above:Performed By: #### LIPID, T7, TSH, CMP #### [facility] [address] [address] [address] Niecy AcuñaCreatinine [Mass/Vol]0.91 mg/dLNormal0.55-1.02The [facility] HospitalComment on above:Performed By: #### LIPID, T7, TSH, CMP #### [facility] [address] [place] [address] Dr. Niecy WilloughbyGFR-AF SRI LANKAN>60Normal>=60The [facility] HospitalComment on above:Performed By: #### LIPID, T7, TSH, CMP #### [facility] [address] [place] [address] Dr. Niecy WilloughbyGFR-NON AF SRI LANKAN=60Normal>=60The [facility] HospitalComment on above:Performed By: #### LIPID, T7, TSH, CMP #### [facility] [address] [place] [address] Dr. Niecy AcuñaGlobulin (S) [Mass/Vol]3.9 g/dLNormalThe [facility] HospitalComment on above:Performed By: #### LIPID, T7, TSH, CMP #### [facility] [address] [place] [address] Dr. Niecy AcuñaGlucose [Mass/Vol]99 mg/sRVyptpc58-922KreTwin City Hospital Comment on above:Performed By: #### LIPID, T7, TSH, CMP #### [facility] [address] [place] [address] Dr. Niecy AcuñaPotassium [Moles/Vol]4.1 mmol/LNormal3.5-5.1The [facility] Comment on above:Performed By: #### LIPID, T7, TSH, CMP #### [facility] [address] [place] [address] Dr. Niecy AcuñaProtein [Mass/Vol]7.7 g/dLNormal6.4-8.2[facility] Comment on above:Performed By: #### LIPID, T7, TSH, CMP #### [facility] [address] [place] [address] Dr. Niecy AcuñaSodium [Moles/Vol]138 mmol/IAvjpod600-606Yci [facility] Comment on above:Performed By: #### LIPID, T7, TSH, CMP #### [facility] [address] [address] [address] Niecy Page nitrogen [Mass/Vol]16.0 mg/dLNormal7.0-18.0The [facility] HospitalComment on above:Performed By: #### LIPID, T7, TSH, CMP #### [facility] [address] [address] [address] Niecy Page nitrogen/Creatinine [Mass ratio]17.6 mg/mgNormalThe [facility] HospitalComment on above:Performed By: #### LIPID, T7, TSH, CMP #### [facility] [address] [address] [address] Niecy Jasso 44-90-6662HKT9.359 uIU/mLNormal0.358-3.740The [facility] HospitalComment on above:Performed By: #### LIPID, T7, TSH, CMP #### [facility] [address] [address] [address] Niecy Acuña Encounters Encounter DateEncounter TypeCare ProviderFacilityStart: 11-07-2022 End: 46-94-6354eicavjssesFAINCSL HOYRiverside Hoahaoism HospitalStart: 70-82-5166lnpleduiynFcoogpw R NILLFacility:GS [facility] HospitalueStart: 02-03-2022 End: 52-46-0774fdtgzmoawiLB YUNG HOYFacility:T4Librv: 02-01-2022 End: 17-73-9150poaxtukuhjCN YUNG HOYFacility:P3Pnpyo: 79-59-5344Eghecbb encounter procedureMaroun Tanus SemaanFacility:9503 Payers DatePayer CategoryPayerPolicy [id number] [id number] Summary Purpose Family History No Family History Records FoundNo Family History Records FoundNo Family History Records FoundNo Family History Records Found Advance Directives No Advanced Directives Records FoundNo Advanced Directives Records FoundNo Advanced Directives Records FoundNo Advanced Directives Records Found Additional Source Comments INFORMATION SOURCE (unrecogn ized section and content) DATE CREATED AUTHOR 02/06/2018 [facility] DATE CREATED AUTHOR AUTHOR'S ORGANIZ ATION 02/08/2022 [facility] DATE CREATED AUTHOR AUTHOR'S ORGANIZ ATION 07/13/2022 [facility] DATE CREATED AUTHOR AUTHOR'S ORGANIZ ATION 12/21/2022 [facility] FOR RECORDS PERTAINING TO PATIENTS WHO [...] BE BASED ON THE PRIMARY CLINICAL RECORDS. [facility] [employer] provides no warranty or guarantee of the accuracy or completeness of information in this document.
[2024-12-31 11:39] LABS: Hematocrit 40.1 % (36.0-48.0); Hemoglobin 13.3 g/dL (12.0-16.0); Immature Granulocytes Abs Auto 0.01 10^3/uL (0.00-0.03); Immature Granulocytes Pct Auto 0.2 % (0.0-0.5); Lymphocytes Absolute Auto 1.4 10^3/uL (1.2-3.8); Mean Corpuscular HGB Conc 33.2 g/dL (29.9-35.2); Mean Corpuscular Hemoglobin 30.1 pg (26.7-34.0); Mean Corpuscular Volume 90.7 fL (81.0-99.0); Platelet Count 322 10^3/uL (150-450); Red Blood Count 4.42 10^6/uL (4.20-5.40); White Blood Count 6.4 10^3/uL (4.0-11.0)
[2024-12-31 12:12] LABS: Iron 56.0 ug/dL (50.0-170.0)
[2024-12-31 12:16] LABS: Alanine Aminotransferase 22 U/L (14-59); Albumin Globulin Ratio 0.9; Albumin Level 3.5 g/dL (3.4-5.0); Alkaline Phosphatase 96 U/L (46-116); Anion Gap 9.4; Aspartate Amino Transferase 13 U/L (15-37); Blood Urea Nitrogen 14.0 mg/dL (7.0-18.0); Calcium 9.0 mg/dL (8.5-10.1); Carbon Dioxide 25.6 mmol/L (21.0-32.0); Chloride 108 mmol/L (98-107); Cholesterol 197 mg/dL (<=200); Estimated GFR (African America >60 (>=60 mL/min/1.73m^2); Estimated GFR (Non-African Ame >60 (>=60 mL/min/1.73m^2); Free T3 2.31 pg/mL (2.18-3.98); Globulin 3.9 g/dL; Glucose 97 mg/dL (74-106); HDL Cholesterol 58 mg/dL (40-60); NT Pro B Type Natriuretic Pept 156.0 pg/mL (<=1800.0); Potassium 4.0 mmol/L (3.5-5.1); Sodium 139 mmol/L (136-145); Thyroid Stimulating Hormone 1.406 uIU/mL (0.358-3.740); Total Protein 7.4 g/dL (6.4-8.2); Triglycerides 103 mg/dL (<=150); VLDL CHOLESTEROL 20.6 mg/dL
== END 2024-12-31 10:53 | disposition home or self-care (01) ==
LOC: LAB 11:03
PROVIDERS: PCP Family Medicine; Visit Provider Family Medicine
DX: R06.00 Dyspnea, unspecified (principal); E55.9 Vitamin D deficiency, unspecified; E78.00 Pure hypercholesterolemia, unspecified; R73.09 Other abnormal glucose; D64.9 Anemia, unspecified; E03.9 Hypothyroidism, unspecified; R53.83 Other fatigue; I50.30 Unspecified diastolic (congestive) heart failure; I11.0 Hypertensive heart disease with heart failure
CPT/HCPCS: 36415; 80053; 80061; 82306; 83036; 83540; 83880; 84436; 84443; 84481; 85025